=== PATIENT | female | born 1990 | race Two or more races ===

== ENCOUNTER 2017-01-16 16:07 | Inpatient (IN) | payer BC ==
[~2017-01-16] VITALS: Ht 180.3 cm; Wt 83.9 kg
[2017-01-16] VITALS (10 sets, daily range): BP systolic 136–166; BP diastolic 75–108
[~2017-01-16 16:07] MED LIST: AMOXICILLIN500 MG PO; CIPRO500 MG PO; MACROBID100 MG PO; MOTRIN600 MG PO; PEN-VEE K,VEET500 MG PO; ULTRAM50 MG PO; ZOFRAN4 MG PO; ZOFRAN8 MG PO
[2017-01-16 17:01] LABS: EOSINOPHIL (%) 0.6 % (0-5); EOSINOPHIL COUNT 0.1 K/uL (0-0.3); HEMATOCRIT 31.7 % (36.0-46.0); IMMATURE GRANULOCYTE (%) 0.4 % (0.0-0.7); INSTRUMENT ABS NEUTROPHIL CT 6.6 K/uL; LYMPHOCYTE COUNT 1.1 K/uL (1.0-2.8); MCH 27.5 PG (29.0-34.0); MCHC 31.5 G/DL (30.0-36.0); MCV 87.1 FL (83-99); MEAN PLAT.VOLUME 13.7 uM^3 (9.5-12.4); MONOCYTE (%) 6.3 % (3-12); MONOCYTE COUNT 0.5 K/uL (0-0.8); NEUTROPHIL (%) 78.8 % (45-76); NEUTROPHIL COUNT 6.6 K/uL (1.8-6.4); PLATELET COUNT 130 K/uL (156-360); RBC DIS.WIDTH-CV 13.2 % (11.8-14.6); RBC DIS.WIDTH-SD 41.3 % (39-53); RED BLOOD COUNT 3.64 M/uL (3.80-5.20); WHITE BLOOD COUNT 8.3 K/uL (4.1-10.2)
[2017-01-16 17:24] LABS: ALKALINE PHOSPHATASE 137 IU/L (3-129); ANION GAP 10 MEQ/L (2-14); CHLORIDE 108 MEQ/L (99-109); GFR ESTIMATE (CALCULATED) > 59 mL/min/; GLUCOSE 88 mg/dL (70-99); POTASSIUM 3.8 MEQ/L (3.7-5.4); SAMPLE HEMOLYSIS CHECK 0; SAMPLE ICTERIC CHECK 0; SAMPLE LIPEMIA CHECK 0; SODIUM 138 MEQ/L (136-147); TOTAL BILIRUBIN 0.3 MG/DL (0.0-1.0); UREA NITROGEN (BUN) 14 mg/dL (9-23); URIC ACID 4.7 mg/dL (3.1-9.2)
[2017-01-16 18:11] LABS: UR CREATININE CONCENTRATION 440.8 MG/DL
[2017-01-17] VITALS (28 sets, daily range): BP systolic 127–170; BP diastolic 72–110
[2017-01-17] MEDS ORDERED: IBUPROFEN800 MG PO (20:55)
[2017-01-18 03:15] VITALS: BP 136/89
[2017-01-18 08:15] VITALS: BP 143/108
[2017-01-18 08:17] LABS: BASOPHIL COUNT 0.1 K/uL (0-0.1); EOSINOPHIL (%) 0.2 % (0-5); HEMATOCRIT 26.5 % (36.0-46.0); IMMATURE GRANULOCYTE (%) 0.4 % (0.0-0.7); IMMATURE GRANULOCYTE COUNT 0.1 K/uL; INSTRUMENT ABS NEUTROPHIL CT 10.1 K/uL; LYMPHOCYTE COUNT 1.8 K/uL (1.0-2.8); MCH 27.4 PG (29.0-34.0); MCHC 31.3 G/DL (30.0-36.0); MCV 87.5 FL (83-99); MEAN PLAT.VOLUME 14.2 uM^3 (9.5-12.4); MONOCYTE (%) 7.6 % (3-12); NEUTROPHIL (%) 77.5 % (45-76); NEUTROPHIL COUNT 10.1 K/uL (1.8-6.4); PLATELET COUNT 151 K/uL (156-360); RBC DIS.WIDTH-CV 13.4 % (11.8-14.6); RBC DIS.WIDTH-SD 42.2 % (39-53); RED BLOOD COUNT 3.03 M/uL (3.80-5.20)
[2017-01-18 12:06] VITALS: BP 147/96
[2017-01-18 16:20] VITALS: BP 137/89
[2017-01-18 19:31] VITALS: BP 137/91
[2017-01-18 22:57] VITALS: BP 143/88
[2017-01-19 03:52] VITALS: BP 143/83
[2017-01-19 08:08] VITALS: BP 134/76
[2017-01-19 13:34] VITALS: BP 146/78
== END 2017-01-19 13:43 | disposition home or self-care (01) | DRG 775 ==
LOC: LDRP-OP 16:07 → 2WEST 16:08
PROVIDERS: Midwife; Nurse Practitioner
DX: O14.04 Mild to moderate pre-eclampsia, complicating childbirth (principal); O70.0 First degree perineal laceration during delivery; O69.1XX0 Labor and delivery complicated by cord around neck, with compression, not applicable or unspecified; Z37.0 Single live birth; Z3A.40 40 weeks gestation of pregnancy
CPT/HCPCS: 80053; 82570; 84156; 84550; 85025; G0378

== ENCOUNTER 2018-06-30 08:57 | Emergency (ER) | payer BC ==
[~2018-06-30] VITALS: Ht 180.3 cm; Wt 63.4 kg
[~2018-06-30 08:57] MED LIST changes: +IBUPROFEN800 MG PO
[2018-06-30 09:29] LABS: HEMATOCRIT 43.5 % (36.0-46.0); HEMOGLOBIN 13.6 G/DL (11.9-15.5); MCH 27.6 PG (29.0-34.0); MCHC 31.3 G/DL (30.0-36.0); MCV 88.4 FL (83-99); RBC DIS.WIDTH-CV 14.5 % (11.8-14.6); RBC DIS.WIDTH-SD 47.1 % (39-53); RED BLOOD COUNT 4.92 M/uL (3.80-5.20); WHITE BLOOD COUNT 10.5 K/uL (4.1-10.2)
[2018-06-30 09:42] LABS: ALBUMIN 4.3 g/dL (3.2-4.8); CHLORIDE 108 mEq/L (99-109); POTASSIUM 4.3 mEq/L (3.7-5.4)
[2018-06-30 09:43] LABS: SODIUM 137 mEq/L (136-147)
[2018-06-30 09:45] LABS: GLUCOSE 96 mg/dL (70-99); TOTAL PROTEIN 7.7 g/dL (6.4-8.3)
[2018-06-30 09:47] LABS: TOTAL BILIRUBIN 0.3 mg/dL (0.0-1.0)
[2018-06-30 09:48] LABS: ALKALINE PHOSPHATASE 58 IU/L (3-129); CREATININE 0.9 mg/dL (0.6-1.3); GFR ESTIMATE (CALCULATED) > 59 mL/min/
[2018-06-30 09:50] LABS: AST (GOT) 19 IU/L (2-34); UREA NITROGEN (BUN) 15 mg/dL (9-23)
[2018-06-30 09:51] LABS: ALT (GPT) 12 IU/L (3-49)
[2018-06-30 09:59] LABS: QUANTITATIVE HCG < 4.0 MIU/ML
[2018-06-30 10:06] LABS: APPEARANCE SL.HAZY ((CLEAR)); BILIRUBIN NEGATIVE; BLOOD NEGATIVE; COLOR YELLOW ((YELLOW)); GLUCOSE (STRIP) NEGATIVE; KETONES NEGATIVE; LEUKOCYTES NEGATIVE; NITRITE NEGATIVE; PROTEIN (STRIP) 30; SPECIFIC GRAVITY 1.027 (1.000-1.030); UROBILINOGEN 0.2 MG/DL (0.2-1.0)
[2018-06-30 10:24] LABS: BACTERIA RARE /HPF; EPITHELIAL CELLS RARE /HPF; MUCUS RARE /LPF; RED BLOOD CELLS 0-5 /HPF (0-5); UCUL ADDED? NO; WHITE BLOOD CELLS 0-5 /HPF (0-5)
[2018-06-30 10:35] LABS: HEMATOLOGY COMMENT 1 SN; PLAT.SUFFICIENCY ADEQUATE; PLATELET COUNT 226 K/uL (156-360)
[2018-06-30 12:36] LABS: SOURCE SWAB
[2018-06-30] MEDS ORDERED: ZOFRAN ODT8 MG PO (13:12)
[2018-06-30 13:29] VITALS: BP 110/61
[2018-06-30 17:28] LABS: CANDIDA DNA PROBE NEGATIVE; GARDNERELLA DNA PROBE NEGATIVE; TRICHOMONAS DNA PROBE NEGATIVE
== END 2018-06-30 13:31 | disposition home or self-care (01) ==
LOC: EME 08:57
PROVIDERS: Physician Assistant
DX: R11.2 Nausea with vomiting, unspecified (principal); R30.0 Dysuria; J45.909 Unspecified asthma, uncomplicated
CPT/HCPCS: 80053; 81003; 84702; 85027; 87210; 87480; 87491; 87510; 87591; 87660; 99281; 99284